=== PATIENT | female | born 1965 | race Caucasian/White ===

== ENCOUNTER → 2021-12-16 | Outpatient (CLI) | payer OTHER, SELFPAY ==
--- NOTE | 2021-12-16 16:45 | MRI_ITS ---
INDICATION: RIGHT knee contusion EXAMINATION: MRI - RIGHT MR Knee W/O Contrast TECHNIQUE: Multiplanar and multisequence MR images of the RIGHT knee. IV Contrast Dosage and Agent: None. COMPARISON: None. FINDINGS: BONE: Nondisplaced fracture of the fibular head extending to the proximal tibiofibular joint. Osseous contusion of the posterior lateral tibial plateau and femoral condyle without discrete fracture. 8mm fluid collection possibly ganglion cyst adjacent to the proximal tibio fibular joint.. JOINT: Small knee joint effusion. Normal alignment. MUSCLES: Pes anserine tendons, semimembranosus, gastrocnemius tendons are intact. . Mild edema within the lateral head gastrocnemius myotendinous junction. MENISCI: Medial and lateral menisci unremarkable. CRUCIATE LIGAMENTS: Complete tear of the mid anterior cruciate ligament. Posterior cruciate ligaments is intact. COLLATERAL LIGAMENTS: Minimal edema along the superficial margin of the medial collateral ligament. Lateral collateral ligament complex appears intact . Intact popliteus. CARTILAGE: Articular cartilage is grossly intact with mild diffuse medial and lateral compartment thinning. Full-thickness chondral loss along the mid patellar lateral facet with mild subchondral edema. OTHER SOFT TISSUES: Small Martinez''s cyst. Mild diffuse anterior knee subcutaneous soft tissue edema. Mild edema along intermuscular fascial planes. MRI/Lower Ext Joint Only (Routine) IMPRESSION: 1. Findings consistent with complete mid anterior cruciate ligament tear. 2. Nondisplaced fractures of the fibular head with osseous contusions of the lateral tibial plateau and lateral femoral condyle. 3. Moderate knee joint effusion. 4. Findings compatible grade 1 MCL strain. 5. Grade IV chondromalacia lateral patellar facet. Electronically Signed: Cheikh Stock MD at 8:23 EDT ,
== END | disposition home or self-care (01) ==
PROVIDERS: Visit Provider Physician Assistant
DX: S80.01XA Contusion of right knee, initial encounter (principal); X58.XXXA Exposure to other specified factors, initial encounter
CPT/HCPCS: 73721